=== PATIENT | female | born 1960 | race Caucasian/White ===

== ENCOUNTER 2023-05-08 17:30 | Outpatient (RCR) | payer OTHER, SELFPAY ==
--- NOTE | 2023-04-05 08:55 | HP.OTEVAL ---
Patient's Visit Information Visit Information Visit Information: TETE SALCEDO is a 62 year old F, referred to Occupational Therapy by Dr. Krupa Ding MD, with a diagnosis of fx 4th metacarpal R hand, mass at R finger and wrist, francesca hand numbness. Date of Evaluation: 04/03/23 Occupational Therapist: Latia Gamino, OMAR/Debra, CHT Subjective Subjective: This 62 year old female arrived with a dx of fx 4th metacarpal bone in R hand with routine healing, right finger and wrist mass, bilateral hand numbness. Pt reports DOI at January 02 when she was using limb trimmers while pulling with both hands the pole fell on her right hand. The pole impacted on R MF, RF, LF. Splint up to her elbow and removed it throughout donned January 06-February 02. Pt reports while trying to aggressively get the movement back in wrist and fingers the numbness started after an extreme pull with wrist flexed and felt it in her right forearm. Pt now having tingling in R thumb, IF, MF and Lateral side of RF. Pt reports her right hand it goes to sleep on her when she uses it. Pt reports at work she got a ergonomic mouse to decrease pain, not keyboard. Pt reports she does a lot of outside work gardening, mowing (steering wheel), and enjoys playing the organ. Pt reports she will see Dr. Nicci krishnan for a nerve conduction next week. Pt reports owning a carpal tunnel wrist brace but has not been wearing it. Pt states she had a R RF was a trigger finger prior to accident. ADLs Comments: difficulty gripping razor or to cut knife small mobility, pt c/o decrease stewardesses teacher ROM Forearm: right 90/90 left 90/90 Wrist: right 50/70 left 55/75 MP: right MF 0/80 RF +5 LF +25/80 Left MF 0/94 RF +10/ LF +15 PIP: right MF +10/100 RF +1 LF + left MF +16/100 RF +14/100 LF + DIP: right MF +5/ RF +5 LF0/59 left MF + RF +15 LF +15 ROM Comments: right fist 1.5 inch from [facility] cease - left able to make a composite fist Right UD [address] Decreased right hand ROM in right RF and LF and ability to make a fist Strength Testing Coordinator: right 46# left 74# Lateral Pinch: right 10# left 8# Tripod Pinch: right 9# left 11# Strength Comments: pt has decreased stewardesses teacher strength in R hand Sensation Sensation Comments: bilateral hand at 2.83 (normal sensation) Nine Hole Peg Right: 24 sec Left: 18.68 sec Comments: Pt demosntrates decreased dexterity with r hand In-Hand Manipulation Finger to Palm Translation: Normal - Right and Normal - Left Palm to Finger Translation: Normal - Right and Normal - Left Special Tests Phalen's (Carpal Tunnel): (+) 15 seconds when tingling started Tinel's: negative Quick DASH-Disab of Arm,Shoulder& Hand Quick DASH Score: 20.0000 Goals Goal:: Pt will improve R stewardesses teacher strength to 70# to increase ability to perform ADL and IADL tasks by discharge. Goal:: Pt will be able to make a composite fist with Right hand by week 3. Goal:: Pt to [place] improved FMC by decreased 9HPT time by 8 seconds in order to improve manipulation her right dominant hand. Goal:: Pt will report wearing carpal tunnel brace consistently at night to decrease occurrence of numbness tingling by week 2. Goal:: Pt to [place] overall increased indep in ADL/IADL tasks by decreased total DASH score by 10 points by discharge. Rehabilitation General Assessment: Pt seen for OT jessica with a dx of fx 4th metacarpal R hand, mass at R finger and wrist, and francesca hand numbness. Pt is 13 weeks post injury from a cement [employer] pole falling on her hand. Pt demonstrates decreased strength, numbness, and limited right RF and LF ROM. This limits the patient in her ability to perform ADL and IADL tasks. Pt will benefit from skilled OT 1-2x a week for 5 weeks for improved hand ROM, strength, and dx education to return to PLOF. Therapist instructed pt in wearing brace during night, median nerve glides, light right RF and LF stretching, and OT POC. Pt verbalizes and agrees to OT POC. Therapy session was directly supervised and doc. approved by Latia Gamino OTR/Debra,CHT. Rehabilitation Potential: Excellent Anticipated Interventions Anticipated Interventions: A/AAROM/PROM, Strengthening, Triggerpoint Release, Modalities, Orthoses, Joint Protection/Energy Conservation, Fine Motor Coord/Tyler, Education re assistive Equipment, Education re Diagnosis and Home Program Visit Plan Frequency: 1-2x /Week Duration: 5 weeks TEXT: Thank you for the opportunity to evaluate your patient. For Medicare and Medicare HMO plans, please review the plan of care and approve it. It will need to be FAXED BACK to us at [phone] for Medicare purposes. Please let me know if there are questions or concerns regarding this plan of care. Physician Signature: Date:
== END 2023-05-08 19:00 | disposition home or self-care (01) ==
LOC: OT 17:30
PROVIDERS: Referring Provider Orthopaedic Surgery Hand Surgery; Visit Provider Orthopaedic Surgery Hand Surgery
DX: S62.304D Unspecified fracture of fourth metacarpal bone, right hand, subsequent encounter for fracture with routine healing (principal); R22.31 Localized swelling, mass and lump, right upper limb; R20.0 Anesthesia of skin
CPT/HCPCS: 97035; 97110; 97166; 97530

== ENCOUNTER → 2024-11-04 | Outpatient (CLI) | payer BC, SELFPAY ==
--- NOTE | 2024-11-04 18:48 | CT_ITS ---
PROCEDURE: SINUS/FACIAL BONE REASON FOR EXAM: CHRONIC SINUSITIS Headaches. TECHNIQUE: CT of the paranasal sinuses without contrast. Coronal and Sagittal reconstruction series were provided. One or more dose reduction techniques were used (e.g., Automated exposure control, adjustment of the mA and/or kV according to patient size, use of iterative reconstruction technique). COMPARISON: None. FINDINGS: Frontal: Unremarkable. Ethmoid: Unremarkable. Sphenoid: Unremarkable. Maxillary: Minimal bilateral mucosal thickening of the maxillary sinuses bilaterally. Turbinates: Gladys bullosa of the left middle turbinate. Nasal Septum: Midline Mastoids/Middle Ears: Unremarkable. CT/Sinus/Facial Bone IMPRESSION: Minimal mucosal thickening of the maxillary sinuses bilaterally. Reading Location: [id number]
== END | disposition home or self-care (01) ==
PROVIDERS: Referring Provider Otolaryngology; Visit Provider Otolaryngology
DX: J32.8 Other chronic sinusitis (principal)
CPT/HCPCS: 70486